=== PATIENT | male | born 1990 | race Caucasian/White ===

== ENCOUNTER 2017-01-21 18:55 | Emergency (ER) | payer OTHER ==
[~2017-01-21] VITALS: Ht 172.7 cm; Wt 80.5 kg
[~2017-01-21 18:55] MED LIST: AMBIEN5 MG PO; FLEXERIL10 MG PO; NAPROSYN500 MG PO; NAPROXEN500 MG PO; NORCO 5/3251 TABLET PO
[2017-01-21] MEDS ORDERED: NORCO 5/3251 TABLET PO (21:06)
[2017-01-21] MEDS ORDERED: NAPROXEN500 MG PO (21:06)
[2017-01-21 21:22] VITALS: BP 141/103
== END 2017-01-21 21:23 | disposition home or self-care (01) ==
LOC: EME 18:55
DX: M54.41 Lumbago with sciatica, right side (principal)
CPT/HCPCS: 99281; 99283; J8540

== ENCOUNTER 2017-06-28 18:14 | Emergency (ER) | payer OTHER ==
[~2017-06-28] VITALS: Ht 170.2 cm; Wt 78.6 kg
[2017-06-28 19:39] LABS: HEMATOCRIT 44.1 % (38.0-50.0); MCH 28.8 PG (29.0-34.0); MCHC 33.3 G/DL (30.0-36.0); MCV 86.5 FL (86-99); PLATELET COUNT 242 K/uL (156-360); RBC DIS.WIDTH-CV 12.2 % (11.8-14.6); RBC DIS.WIDTH-SD 38.7 % (39-53)
[2017-06-28 20:00] LABS: CHLORIDE 105 mEq/L (99-109); POTASSIUM 3.9 mEq/L (3.7-5.4); SODIUM 141 mEq/L (136-147)
[2017-06-28 20:02] LABS: GLUCOSE 78 mg/dL (70-99)
[2017-06-28 20:03] LABS: ANION GAP 7 MEQ/L (2-14)
[2017-06-28 20:04] LABS: TOTAL BILIRUBIN 0.5 mg/dL (0.0-1.0)
[2017-06-28 20:05] LABS: ALKALINE PHOSPHATASE 77 IU/L (3-129)
[2017-06-28 20:06] LABS: GFR ESTIMATE (CALCULATED) > 59 mL/min/
[2017-06-28 20:07] LABS: UREA NITROGEN (BUN) 15 mg/dL (9-23)
[2017-06-28 20:53] LABS: ADD MIUA? YES; BILIRUBIN NEGATIVE; BLOOD LARGE; COLOR YELLOW ((YELLOW)); GLUCOSE (STRIP) NEGATIVE; KETONES NEGATIVE; LEUKOCYTES TRACE; NITRITE NEGATIVE; PROTEIN (STRIP) 100; SPECIFIC GRAVITY 1.024 (1.000-1.030)
[2017-06-28 21:02] LABS: BACTERIA RARE /HPF; EPITHELIAL CELLS RARE /HPF; MUCUS TRACE /LPF; RED BLOOD CELLS 20-30 /HPF (0-5); UCUL ADDED? YES
[2017-06-28] MEDS ORDERED: KEFLEX500 MG PO (21:57)
[2017-06-28 22:04] VITALS: BP 135/80
== END 2017-06-28 22:05 | disposition home or self-care (01) ==
LOC: EME 18:14
DX: N39.0 Urinary tract infection, site not specified (principal)
CPT/HCPCS: 74176; 80053; 81003; 85027; 87086; 99281; 99283; J1885